=== PATIENT | female | born 2000 | race Caucasian/White ===

== ENCOUNTER 2023-05-24 09:33 | Outpatient (OUT) | payer OTHER, SELFPAY ==
--- NOTE | 2023-05-24 09:36 | US_ITS ---
The [address] [address] Patient Name: JYOTHI FARRELL MRN: [id number] date: 2000 Sex: F Assigned Patient Location: Current Patient Location: US Accession/Order Number: [id number] Exam Date: 05/24/2023 09:40 Report Date: 05/24/2023 10:10 At the request of: BABAR ZHU Procedure: US pelvis transvaginal EXAMINATION: US pelvis transvaginal HISTORY: Menorrhagia, irregular cycles COMPARISON: No relevant comparison available. FINDINGS: The uterus is normal in size, contour and echotexture measuring 7.3 x 4.7 x 4.0 cm. No focal myometrial mass. The endometrium measures 12.8 mm, correlate with the menstrual cycle. The right ovary is normal in appearance measuring 3.7 x 2.4 x 1.9 cm. Normal color and Doppler flow. Areas of subcentimeter anechoic echogenicity, normal follicles. Left ovary measures 3.6 x 2.9 x 2.9 cm. Normal color and Doppler flow. 1.7 x 1.3 x 1.1 cm cystic area. Collapsing functional cyst is favored. Areas of subcentimeter anechoic echogenicity, normal follicles No free fluid US/US pelvis transvaginal IMPRESSION: Polycystic ovarian morphology with numerous bilateral ovarian follicles Electronically authenticated by: DARRON BUTLER Date: 05/24/2023 10:10
== END 2023-05-24 09:34 | disposition home or self-care (01) ==
LOC: US 09:33
PROVIDERS: PCP Nurse Practitioner; Visit Provider Nurse Practitioner
DX: N92.0 Excessive and frequent menstruation with regular cycle (principal)
CPT/HCPCS: 76830